=== PATIENT | female | born 1995 | race Caucasian/White ===

== ENCOUNTER → 2017-01-30 16:05 | Observation (INO) ==
[2017-01-30 15:18] LABS: Bilirubin,Urine Negative (Negative); Blood,Urine Negative (Negative); Color,Urine Yellow (Yellow); Glucose,Urine (UA) Normal (Normal); Ketones,Urine Negative (Negative); Leukocyte Esterase,Urine Negative (Negative); Nitrite,Urine Negative (Negative); Protein,Urine Negative (Neg-Trace); Specific Gravity,Urine 1.024 (1.010-1.025); Urobilinogen,Urine Normal (Normal)
[2017-01-30 15:21] LABS: Bacteria,Urine Few per hpf (None-Few); Hyaline Casts,Urine None Seen per lpf (None-Few); RBC,Urine 0-3 per hpf (0-3); Squamous Epithelial Cell,Urine Many per lpf (None-Few)
[2017-01-30 15:23] LABS: Clarity,Urine Cloudy (Clear)
--- NOTE | 2017-01-30 15:57 | Discharge Summary ---
Date of Encounter: 01/30/17 Time of Encounter: 15:57 - Discharge Diagnosis (1) Uterine contractions during Priority: Primary Status: Acute Comments: Patient arrives to labor and delivery with c/o low uterine contractions for the past 12 hours. She denies intercourse in the past 48 hours She states she does not drink a lot of water. She denies heavy activity or feeling thirsty She states positive movement. She denies LOF, vaginal bleeding, and vaginal discharge. Contractions not present on monitor, nor are they palpable. No tenderness suprapubically with palpation. and TOCO monitoring - WNL Urinalysis - NSF SSE - Visually closed cervix Discharge home with labor precautions Follow up in office with Dr Rowell as previously scheduled or prn if needed POC per consult with Dr Goetz (2) 21 weeks gestation of Priority: Primary Status: Acute Comments: Follow up in office with routine care or as needed - Discharge Medications Home Medications: Docusate [Colace] 100 mg PO BID #60 capsule 09/07/15 [Rx] Ferrous Sulfate 325 mg PO DAILY #30 tablet 09/07/15 [Rx] Ibuprofen [Motrin] 600 mg PO Q6H PRN #60 tablet 09/07/15 [Rx] Promethazine [Phenergan] 25 mg PO Q6HR #20 tablet 11/08/16 [Rx] Allergies/Adverse Reactions: Allergies No Known Allergies Allergy (Verified 07/19/16 08:48) Data Procedures and tests throughout hospitalization: Laboratory Tests 01/30/17 14:50 Urine Color Yellow Urine Clarity Cloudy A Urine pH 7.0 Ur Specific [place] 1.024 Urine Protein Negative Urine Glucose (UA) Normal Urine Ketones Negative Urine Blood Negative Urine Nitrite Negative Urine Bilirubin Negative Urine Urobilinogen Normal Ur Leukocyte Esterase Negative Urine Microscopic RBC 0-3 Urine Microscopic WBC 3-5 H Ur Squamous Epith Cells Many H Urine Bacteria Few Hyaline Casts None Seen Ur Culture Indicated? NO Labs on day of discharge: Labs from last 24 hours 01/30/17 14:50 Urine Color Yellow Urine Clarity Cloudy A Urine pH 7.0 Ur Specific [place] 1.024 Urine Protein Negative Urine Glucose (UA) Normal Urine Ketones Negative Urine Blood Negative Urine Nitrite Negative Urine Bilirubin Negative Urine Urobilinogen Normal Ur Leukocyte Esterase Negative Urine Microscopic RBC 0-3 Urine Microscopic WBC 3-5 H Ur Squamous Epith Cells Many H Urine Bacteria Few Hyaline Casts None Seen Ur Culture Indicated? NO Date of admission: 01/30/17 14:26 Primary care physician: Nichole Tadeo MD Discharging clinician: Blanca Man Anticipated date of discharge: 01/30/17 - Patient Status Disposition: Home, Self-Care Condition: Good Functional capacity at discharge: independent ambulation Overall status at discharge: patient is back to baseline - Discharge Instructions Follow Up With: Nichole Tadeo MD [Primary Care Provider] - Ruben Rowell DO [Partnered Physician] - - Diet and Activity Activity: resume usual activities as tolerated Diet: regular diet Hospital Course GUIDANCE SECRETARY Time Attestation: Total time spent providing and/or coordinating discharge services: Time Spent: Less than 30 minutes Exam - Constitutional General appearance IM: cooperative, A&O X 3, pleasant - Respiratory Respiratory exam: Present: CTAB - Cardiovascular Cardiovascular exam IM: Present: RRR, +S1, +S2 - GI/Abdominal GI/Abdominal exam IM: normal bowel sounds, soft - Rectal Rectal exam: deferred - Additional comments: Gravid size appropriate for gestational age Uterus palpates soft Baseline 150 with moderate variability, appropriate for gestational age. SSE - visually closed cervix - Extremities Exam Extremities exam IM: Present: normal capillary refill, normal inspection, radial pulses palpable and symetrical - Neurological Exam Neurological exam: alert, oriented X3, reflexes normal - VTE Reasons for not Prescribing Prophylaxis: Treatment not Indicated - Low risk for VTE
== END | disposition home or self-care (01) ==
LOC: 1NENULAB
PROVIDERS: ADMIT Obstetrics & Gynecology; ATTEND Obstetrics & Gynecology

== ENCOUNTER 2017-06-01 07:54 | Inpatient (IN) ==
[2017-06-01] MEDS ORDERED: Metoclopramide 10 MG/2 ML VIAL IVP PRN (08:58)
[2017-06-01] MEDS ORDERED: miSOPROStol 25 MCG TABLET VG PRN (08:58)
[2017-06-01] MEDS ORDERED: Ondansetron 4 MG/2 ML VIAL IVP PRN (08:58)
[2017-06-01] MEDS ORDERED: Famotidine 20 MG/2 ML VIAL IVP PRN (08:58)
[2017-06-01] MEDS ORDERED: *HR* Nalbuphine 20 MG/ML AMPUL IVP PRN (09:00)
[2017-06-01] MEDS ORDERED: FLUARIX QUAD 2017-18 36MOS UP/PF 0.5 ML SYRINGE IM ONE (09:02)
[2017-06-01 09:07] LABS: Basophils # 0.1 K/mcL (0.0-0.2); Basophils % 0.4 %; Eosinophils # 0.1 K/mcL (0.0-0.6); Hematocrit 31.7 % (35.3-44.9); Hemoglobin 10.5 g/dL (11.5-15.4); Immature Granulocytes % 1.4 % (0-4); Lymphocytes # 2.5 K/mcL (0.6-4.6); Lymphocytes % 19.6 %; Mean Corpuscular HGB Conc 33.1 g/dL (31.6-35.5); Mean Corpuscular Hemoglobin 27.6 pg (28.0-33.3); Mean Corpuscular Volume 83.2 fL (83.0-100.0); Mean Platelet Volume 9.7 fL (9.4-12.4); Monocytes # 0.9 K/mcL (0.0-1.3); Monocytes % 6.8 %; Neutrophils # 8.9 K/mcL (1.6-8.9); Platelet Count 291 K/mcL (140-400); Red Blood Count 3.81 M/mcL (3.82-4.97); Red Cell Distribution Width 15.2 % (11.5-14.5); Segmented Neutrophils % 70.8 %
[2017-06-01] MEDS ORDERED: Penicillin G Potassium 5,000,000 UNIT in D5% in Water (Mini-Bag+) 100 ML IVPB ONE (09:13)
[2017-06-01] MEDS ORDERED: miSOPROStol 25 MCG TABLET PO PRN (09:30)
[2017-06-01] MEDS: Ringers Solution, Lactated 1,000 ML IVC SCH ×2 (09:31→17:32)
--- NOTE | 2017-06-01 09:34 | OB/GYN History & Physical ---
Date of Encounter: 06/01/17 Time of Encounter: 09:30 Assessment and Plan (1) 39 weeks gestation of Current visit: No Status: Acute (2) Elective induction of labor planned Current visit: No Status: Acute We will induce the patient with a Escalante catheter, and by mouth Cytotec, and anticipate vaginal delivery (3) and not yet delivered in third trimester Current visit: No Status: Acute (4) Positive GBS test Current visit: Yes Status: Acute We will start antibiotics penicillin 5 million units loading dose and 2.5 million units every 4 hours until delivery History of Present Illness HPI: Ms. Serra is a 21 year old female 2 para 1 at 39-1/7 weeks who presented for induction of labor secondary to in with favorable cervix. Patient is a small individual at only 4 foot 11 and has a average sized baby but for her results of the large. I am concerned the baby will get too big to be let her go too far and not be able to be delivered through is recommended once she was in the 39 week range with a favorable cervix which is bringing in and induce. Patient's course otherwise has been unremarkable. Patient is varicella status is equivocal she is GBS positive, rubella positive, Rh+. Past Med Surg Social Fam HX - Past Medical History Source: patient, old records reviewed Medical history: no medical history Psychiatric history: anxiety - Past Surgical History Surgical History: no surgical history - Social History Smoking Status: Never smoker Smokeless Tobacco Status: No Alcohol use: none Drug use: none Occupational status: employed Current living situation: Home - Independent Activity Level: Independent ambulation Recent Out of Country Travel Within the Last 8 Weeks: No Exposure or Possible Exposure to Illness During Travel: No - Family History Mother Adopted: [place]: Anaya Family Member Ethnicity: Non- Living Status: Still Living Hx Family Cardiac Disorders: No Hx Family Respiratory Disorders: No Hx Family Cancer: No Hx Family GI Disorders: No Hx Family Genitourinary Disorders: No Hx Family Endocrine Disorder: No Hx Family Musculoskeletal Disorders: No Hx Family Neuromuscular Disorders: No Hx Family Neurologic Disorders: No Hx Family HEENT Disorders: No Hx Family Autoimmune Disorders: No Hx Family Reproductive Disorders: No Hx Family Psychosocial Disorders: No Hx Family Medical Disorders: No - Additional Family History Additional family history: Family history is noncontributory Obstetrical History - Pregnancies : 2 Para: 1 Livin Medications and Allergies Formula Tablet 1 tab PO DAILY 04/26/17 [History] Unisom 1 tab PO DAILY 04/26/17 [History] Phenergan 06/01/17 [History] 3 Allergy/AdvReac Type Severity Reaction Status Date / Time No Known Allergies Allergy Verified 07/19/16 08:48 Review of System OB All systems PM: reviewed and no additional remarkable complaints except as stated Exam - Constitutional Constitutional: well developed, well nourished, no acute distress, average body habitus - HEENT HEENT: EOMI, PERRL, Mucus Membranes Moist - Neck Neck exam: full ROM - Lungs Respiratory exam: CTAB - Cardiovascular Cardiovascular exam: RRR - Abdomen Abdomen: Present: bowel sounds normal, gravid - Vagina Vagina: Present: normal moisture - Cervix Cervix: Present: lesion Dilation: 2 Effacement: 50 Station: -3 - Uterus Uterus exam: Present: normal size - Comments Comments: heart tones in the 140s reactive contractions every 2-4 minutes irregular. Escalante catheter placed 30 mL balloon inflated without difficulty Results Result Diagrams: 06/01/17 08:50 Abnormal lab results WBC 12.6 K/mcL (4.3-11.1) H 06/01/17 08:50 RBC 3.81 M/mcL (3.82-4.97) L 06/01/17 08:50 Hgb 10.5 g/dL (11.5-15.4) L 06/01/17 08:50 Hct 31.7 % (35.3-44.9) L 06/01/17 08:50 MCH 27.6 pg (28.0-33.3) L 06/01/17 08:50 RDW 15.2 % (11.5-14.5) H 06/01/17 08:50 All other labs normal. - VTE Reasons for not Prescribing Prophylaxis: Treatment not Indicated - Low risk for VTE
--- NOTE | 2017-06-01 10:48 | Anesthesia Evaluation PreOp ---
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: Denies Any Significant HX Other Medical History: Denies Any Significant HX Anesthesia History: No Prior Anesthetic Complications, Past Anesthesia Alcohol Use: none Drug use: none Medications and Allergies Formula Tablet 1 tab PO DAILY 04/26/17 [History] Unisom 1 tab PO DAILY 04/26/17 [History] Phenergan 06/01/17 [History] 3 Allergy/AdvReac Type Severity Reaction Status Date / Time No Known Allergies Allergy Verified 07/19/16 08:48 Anesthesia Results - Labs 06/01/17 08:50 Anesthesia Exam - HEENT Pupil (Motor): Pupils equal Mallampati: II Teeth: Normal Oral Opening: Greater than 3 - OFFSET PROOF PRESS OPERATOR LOC: Oriented OFFSET PROOF PRESS OPERATOR Motor: Normal RUE, Normal LUE, Normal RLE, Normal LLE, Normal Face OFFSET PROOF PRESS OPERATOR Sensory: Normal: RUE, LUE, RLE, LLE, Face - Cardiac Rhythm: Regular Murmur: None - Pulmonary Breath Sounds: bilateral Clear Respiratory Effort: Symmetrical Anesthesia Assess/Plan ASA Score: 2 Modified Yariel Scale for Level of Consciousness: Cooperative, oriented, and tranquil Anesthetic Plan: General, Regional Monitoring Plan: Standard Monitors Recovery Plan: PACU
[2017-06-01] MEDS: Penicillin G Potassium 2,500,000 UNIT in D5% in Water 100 ML IVPB SCH ×2 (13:38→17:35)
[2017-06-01 14:03] LABS: Amphetamine Screen,Urine Negative ng/mL (Cutoff=1000); Barbiturate Screen,Urine Negative ng/mL (Cutoff=200); Benzodiazepines Screen,Urine Negative ng/mL (Cutoff=200); Cannabinoid Screen,Urine Negative ng/mL (Cutoff = 50); Cocaine Screen,Urine Negative ng/mL (Cutoff= 300); Opiate Screen,Urine Negative ng/mL (Cutoff=300); Phencyclidine Screen,Urine Negative ng/mL (Cutoff=25)
[2017-06-01] MEDS ORDERED: Epidural Premix (fent/bupiv) 110 ML EP ONE ×2 (14:19→21:07)
--- NOTE | 2017-06-01 15:41 | Anesthesia Procedures ---
Date of Encounter: 06/01/17 Time of Encounter: 15:17 Procedures: Anesthesia - Epidural/Spinal Patient ID/Chart reviewed: Yes Patient examined: Yes OB Eval: Gestational age: term OB Eval: : 2 OB Eval: Hx Para: 1 OB Eval: Dilated at (cm): 4 OB Eval: Contractions: Non-stressed pattern Consent Obtained: Yes Supplemental Oxygen: None/Room Air Site Prep: Aseptic Technique, Sterile prep and drape, 0.5% Chlorhexidine/Alcohol Patient position: upright Local Anesthetic: Lidocaine 1% Amount of Local Anesthetic used: 2 Touhy Needle Gauge: 18 Touhy Needle Depth (cm): 7 Catheter Depth at Skin (cm): 11 Test Dose (1.5% Lido + Epi): Volume given (mls): 3 Test Dose Result: Negative Loading Dose: Other: 10ml from solution Loading Dose Administered: Thru Catheter Infusion Med: 0.125% Bupivacaine w/ 2 mcg/ml Fentanyl Infusion Rate (mls/hr): [address]: Tegaderm, Tape Interspace Used: L3-L4 Loss of Resistance (CY): Yes (saline) Blood: No CSF: No Paresthesia: No Procedure: vss though out, FHR stable per RN's
--- NOTE | 2017-06-01 15:51 | OB Labor Progress Note ---
Date of Encounter: 06/01/17 Time of Encounter: 15:50 Labor Progress Note - Subjective Subjective: Patient comfortable after epidural not feeling any contractions at this time - Cervix Cervix: 5/80/-2 AROM large amt clear flluid - Heart Tones Heart Tones: heart tones 140s reactive - [place]: Contractions every 2 minutes - Plan Plan: Continue current care and anticipate vaginal delivery
--- NOTE | 2017-06-01 18:08 | OB Labor Progress Note ---
Date of Encounter: 06/01/17 Time of Encounter: 18:00 Labor Progress Note - Subjective Subjective: patient not feeling contractions - Cervix Cervix: 6/80/-2 - Heart Tones Heart Tones: FHT 140's reactive - [place]: IUPC placed contractions irregular q 3-5 min - Plan Plan: will augment with pitocin
[2017-06-01] MEDS ORDERED: Mag Hydrox/Al Hydrox/Simeth 30 ML UDC PO PRN (18:11)
[2017-06-01] MEDS ORDERED: Oxytocin 20 units/ LR 1000 mL 20 UNIT/1,000 ML BAG IVC SCH ×2 (18:15→23:53)
--- NOTE | 2017-06-01 20:03 | OB Labor Progress Note ---
Date of Encounter: 06/01/17 Time of Encounter: 19:50 Labor Progress Note - Subjective Subjective: patient still very comfortable not feeling contractions - Cervix Cervix: /-2 feels like baby might be OP - Heart Tones Heart Tones: FHT's 140 reactive - [place]: contractions every 2 min - Plan Plan: change position and anticipate
--- NOTE | 2017-06-01 21:57 | OB/GYN Procedure Note ---
Delivery - Delivery Date: 06/01/17 Provider: Ruben Rowell Intrapartum events: none Delivery induction: thacker, misoprostol Delivery augmentation: rupture of membranes, pitocin Delivery monitor: external FHT, external uterine, internal uterine Anesthesia: epidural Estimated Blood Loss: 100 - Infant (s) Infant A Infant Delivery Date: 06/01/17 Delivery Time: 21:38 Presentation: vertex Position: KRISTY Route of delivery: Gender: Female Viability: Viable Pounds: 7 Ounces: 9 Weight Gram: 3.44 kg at 1 minute: 8 at 5 mins: 9 Shoulder Dystocia: not encountered Specimens collected: cord blood Placenta: spontaneous Cord: 3 umbilical vessels - Repair Episiotomy: none Laceration Description: None - Complications Delivery complications: none Delivery comments: Patient is a 21-year-old 2 para 1 at 39-1/7 weeks who presented to labor and delivery for induction of labor secondary to term with favorable cervix. Patient did receive the Thacker catheter and Cytotec by mouth catheter fell out when she was 4-5 cm. She did receive an epidural and she was artificially ruptured approximate 5 cm with clear fluid. Patient progressed hopefully patient became complete but the head was at a -2 station and felt the baby was in an OP presentation. Did position changes which allowed the baby to turn and patient descended quickly at this point she pushed for 4. Time delivering a viable female infant in left occiput anterior presentation at 2138. There was no nuchal cord, no meconium, infant was bulb suctioned on the abdomen. Apgars 8 at 1 minute, 9 at 5 minutes, infant weight was 7 lbs. 9 oz. 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 Perineum cervix and vagina was visualized intact patient tolerated the delivery well. She will be observed 2 hours before being taken the floor. - Disposition Mom disposition: stable in LDR [place] disposition: stable in LDR
[2017-06-01] MEDS ORDERED: Acetaminophen 325 MG TABLET PO PRN (23:53)
[2017-06-01] MEDS ORDERED: Measles/Mumps/Rubella Vacc 0.5 ML VIAL SQ PRN (23:53)
[2017-06-02 07:18] LABS: Basophils % 0.2 %; Eosinophils # 0.1 K/mcL (0.0-0.6); Eosinophils % 0.3 %; Hematocrit 28.3 % (35.3-44.9); Hemoglobin 9.4 g/dL (11.5-15.4); Immature Granulocytes % 0.8 % (0-4); Lymphocytes # 2.4 K/mcL (0.6-4.6); Lymphocytes % 13.7 %; Mean Corpuscular HGB Conc 33.2 g/dL (31.6-35.5); Mean Corpuscular Hemoglobin 27.7 pg (28.0-33.3); Mean Corpuscular Volume 83.5 fL (83.0-100.0); Mean Platelet Volume 9.5 fL (9.4-12.4); Monocytes # 1.2 K/mcL (0.0-1.3); Monocytes % 7.1 %; Neutrophils # 13.4 K/mcL (1.6-8.9); Nucleated Red Blood Cells 0.1 /100 WBC (0); Platelet Count 273 K/mcL (140-400); Red Blood Count 3.39 M/mcL (3.82-4.97); Red Cell Distribution Width 15.4 % (11.5-14.5); Segmented Neutrophils % 77.9 %
[2017-06-02] MEDS: Prenatal Vit/FA 1 EACH TABLET PO SCH (09:44)
[2017-06-02] MEDS: Ibuprofen 600 MG TABLET PO PRN ×3 (09:45→21:33)
--- NOTE | 2017-06-02 12:22 | OB/GYN Progress Note ---
Date of Encounter: 06/02/17 Time of Encounter: 12:21 - Assessment and Plan (1) Status post vaginal delivery Current Visit: Yes Status: Acute continue post op management and pain control. Anticipate discharge tomorrow morning. (2) 39 weeks gestation of Current Visit: Yes Status: Resolved (3) Elective induction of labor planned Current Visit: Yes Status: Resolved (4) Positive GBS test Current Visit: Yes Status: Acute Subjective - Subjective Principal diagnosis: s/p vaginal delivery Interval history: Patient doing well overnight, some cramping noted. Anticipate discharge tomorrow. Patient reports: appetite normal, voiding normally, pain well controlled, ambulating normally [place]: doing well, nursing well Objective - Latest Vital Signs Latest vital signs: Vital Signs Temp Pulse Resp BP Pulse Ox 06/02/17 07:50 98.4 F 84 16 112/63 96 06/02/17 02:05 99.1 F 99 16 115/69 95 06/02/17 01:05 98.9 F 88 16 109/64 96 06/02/17 00:05 98.9 F 94 16 126/75 96 Intake and Output 06/01/17 06/02/17 06/02/17 23:59 07:59 15:59 Intake Total 1000 / 1000 700 / 700 Output Total 100 / 100 1350 / 1350 Balance 900 / 900 -650 / -650 Intake: IV Fluids 1000 / 1000 Lactated Ringers 1,000 ML @ 125 1000 / 1000 mls/hr IVC .Q8H [facility] Rx#: [id number] Oral 400 / 400 Other 300 / 300 Output: Urine 1350 / 1350 Estimated Blood Loss 100 / 100 Other: Weight 81.2 kg Patient Weight 06/02/17 23:59 Weight 81.2 kg - Exam Lungs: bilateral: normal Chest: Normal S1, Normal S2 Extremities: Present: normal Abdomen: Present: normal appearance, soft Uterus: Present: normal, firm Uterus Position: 1 Finger Below Umbilicus - Labs Labs: Laboratory Results - last 24 hr 06/01/17 06/02/17 13:45 06:44 WBC 17.2 H RBC 3.39 L Hgb 9.4 L Hct 28.3 L MCV 83.5 MCH 27.7 L MCHC 33.2 RDW 15.4 H Plt Count 273 MPV 9.5 Immature Gran % 0.8 Seg Neutrophils % 77.9 Lymphocytes % 13.7 Monocytes % 7.1 Eosinophils % 0.3 Basophils % 0.2 Neutrophils # 13.4 H Lymphocytes # 2.4 Monocytes # 1.2 Eosinophils # 0.1 Basophils # 0.0 Nucleated RBCs/100 WBC 0.1 H Urine Opiates Screen Negative Ur Barbiturates Screen Negative Ur Phencyclidine Scrn Negative Ur Amphetamines Screen Negative U Benzodiazepines Scrn Negative Urine Cocaine Screen Negative U Marijuana (THC) Screen Negative - Attending Attestation I examined this patient and my medical decision-making was reviewed with the Resident Physician. I agree with the documented findings, disposition and treatment plan as described except to the extent set forth below.
[2017-06-03 08:04] VITALS: BP 110/71
[2017-06-03] MEDS: Prenatal Vit/FA 1 EACH TABLET PO SCH (08:56)
--- NOTE | 2017-06-03 10:08 | Discharge Summary ---
Date of Encounter: 06/03/17 Time of Encounter: 10:10 - Discharge Diagnosis (1) Status post vaginal delivery Priority: Primary Status: Acute Comments: Meeting all milestones, pain well managed on po pain medication. desires discharge. (2) anemia Priority: Primary Status: Acute Comments: Hemoglobin has decreased from 10.5 to 9.4 since yesterday. -Patient will continue iron supplements. - Discharge Medications Prescriptions: Ibuprofen [Motrin] 600 mg PO Q6HR PRN #60 tablet PRN Reason: Cramping Docusate [Colace] 100 mg PO BID #30 capsule Ferrous Sulfate 325 mg PO DAILY #30 tablet Home Medications: Formula Tablet 1 tab PO DAILY 04/26/17 [History] Unisom 1 tab PO DAILY 04/26/17 [History] Phenergan 06/01/17 [History] Docusate [Colace] 100 mg PO BID #30 capsule 06/03/17 [Rx] Ferrous Sulfate 325 mg PO DAILY #30 tablet 06/03/17 [Rx] Ibuprofen [Motrin] 600 mg PO Q6HR PRN #60 tablet 06/03/17 [Rx] Allergies/Adverse Reactions: 3 Allergy/AdvReac Type Severity Reaction Status Date / Time No Known Allergies Allergy Verified 07/19/16 08:48 Data Procedures and tests throughout hospitalization: Laboratory Tests 06/01/17 06/01/17 06/02/17 08:50 13:45 06:44 WBC 12.6 H 17.2 H RBC 3.81 L 3.39 L Hgb 10.5 L 9.4 L Hct 31.7 L 28.3 L MCV 83.2 83.5 MCH 27.6 L 27.7 L MCHC 33.1 33.2 RDW 15.2 H 15.4 H Plt Count 291 273 MPV 9.7 9.5 Immature Gran % 1.4 0.8 Seg Neutrophils % 70.8 77.9 Lymphocytes % 19.6 13.7 Monocytes % 6.8 7.1 Eosinophils % 1.0 0.3 Basophils % 0.4 0.2 Neutrophils # 8.9 13.4 H Lymphocytes # 2.5 2.4 Monocytes # 0.9 1.2 Eosinophils # 0.1 0.1 Basophils # 0.1 0.0 Nucleated RBCs/100 WBC 0.1 H Urine Opiates Screen Negative Ur Barbiturates Screen Negative Ur Phencyclidine Scrn Negative Ur Amphetamines Screen Negative U Benzodiazepines Scrn Negative Urine Cocaine Screen Negative U Marijuana (THC) Screen Negative Date of admission: 06/01/17 07:54 Primary care physician: Nichole Tadeo MD Consults: 06/01/17 23:53 Consult to Ultrasound Tester [CONS] Routine Comment: Vaginal delivery, consult needed Discharging clinician: Domingo García Anticipated date of discharge: 06/03/17 - Patient Status Disposition: Home, Self-Care Condition: Good Functional capacity at discharge: independent ambulation Overall status at discharge: patient is progressing back to baseline - Discharge Instructions Instructions: Anemia (GEN) Follow Up With: Nichole Tadeo MD [Primary Care Provider] - - Diet and Activity Activity: resume usual activities as tolerated Diet: low fat, low cholesterol, regular diet Hospital Course Reason for admission: induction of labor Delivery: Episiotomy: none Laceration: none Other procedures: none complications: none Discharge diagnosis: IUP at term delivered baby: female Hospital course: Patient is a 21-year-old 2 para 1 at 39-1/7 weeks who presented to labor and delivery for induction of labor secondary to term with favorable cervix. Patient did receive the Escalante catheter and Cytotec by mouth catheter fell out when she was 4-5 cm. She did receive an epidural and she was artificially ruptured approximate 5 cm with clear fluid. Patient progressed hopefully patient became complete but the head was at a -2 station and felt the baby was in an OP presentation. Did position changes which allowed the baby to turn and patient descended quickly at this point she pushed for 4. Time delivering a viable female in left occiput anterior presentation at 2138. There was no nuchal cord, no meconium, was bulb suctioned on the abdomen. Apgars 8 at 1 minute, 9 at 5 minutes, weight was 7 lbs. 9 oz. Placenta was then delivered spontaneously with three-vessel cord. When seen today, patient says that she still experiences abdominal discomfort and says it can go up to a 7/10 in pain scale, but is usually well controlled with her current pain meds. She admits to vaginal bleeding, but says it has improved since the delivery and says she only has minor spotting now. She denies any dysuria, fever, chills, nausea, vomiting, chest pain, shortness of breath, headaches, vision changes, light-headedness, or syncope. She says she has been able to breastfeed the baby well. She reports she is in good mood. Patient's hemoglobin is currently at 9.4. She will be discharged with iron supplements for which she should continue to take for 30 days. Patient has a follow-up appointment with Dr. Rowell on 07/03/2017. Time Attestation: Total time spent providing and/or coordinating discharge services: Time Spent: Less than 30 minutes Exam - Constitutional Vitals: Temp Pulse Resp BP Pulse Ox 97.8 F 78 12 110/71 95 06/03/17 08:01 06/03/17 08:01 06/03/17 08:01 06/03/17 08:01 06/03/17 08:01 General appearance IM: A&O X 3 - Respiratory Respiratory exam: Present: CTAB. Absent: respiratory distress, rhonchi, wheezes - Cardiovascular Cardiovascular exam IM: Present: RRR, +S1, +S2 - GI/Abdominal GI/Abdominal exam IM: normal bowel sounds, soft - Extremities Exam Extremities exam IM: Present: normal capillary refill, normal inspection, radial pulses palpable and symmetrical. Absent: pedal edema, tenderness - Neurological Exam Neurological exam: CN II-XII intact, reflexes normal, no focal deficits, strengths equal and symetr throughout
== END 2017-06-03 12:04 | disposition home or self-care (01) | DRG 560 ==
LOC: 1NENULAB 07:54 → 1NENUOBS 23:51
PROVIDERS: ADMIT Obstetrics & Gynecology; ATTEND Obstetrics & Gynecology

== ENCOUNTER → 2021-10-16 15:44 | Observation (INO) ==
[2021-10-16 14:09] LABS: Basophils # 0.1 K/mcL (0.0-0.2); Basophils % 0.6 %; Eosinophils # 0.1 K/mcL (0.0-0.6); Hemoglobin 11.2 g/dL (11.5-15.4); Immature Granulocytes % 1.4 % (0-4); Lymphocytes # 2.5 K/mcL (0.6-4.6); Lymphocytes % 20.9 %; Mean Corpuscular HGB Conc 33.9 g/dL (31.6-35.5); Mean Corpuscular Hemoglobin 31.5 pg (28.0-33.3); Mean Corpuscular Volume 92.7 fL (83.0-100.0); Monocytes # 0.6 K/mcL (0.0-1.3); Monocytes % 4.8 %; Neutrophils # 8.4 K/mcL (1.6-8.9); Platelet Count 224 K/mcL (140-400); Red Blood Count 3.56 M/mcL (3.82-4.97); Red Cell Distribution Width 12.1 % (11.5-14.5); Segmented Neutrophils % 71.3 %; White Blood Count 11.8 K/mcL (4.3-11.1)
[2021-10-16 14:43] LABS: Potassium 3.7 mEq/L (3.5-5.1)
[2021-10-16 15:01] LABS: Bacteria,Urine Few per hpf (None-Few); Bilirubin,Urine Negative (Negative); Blood,Urine Negative (Negative); Clarity,Urine Clear (Clear); Color,Urine Yellow (Yellow); Glucose,Urine (UA) Normal (Normal); Ketones,Urine Negative (Negative); Leukocyte Esterase,Urine Small (Negative); Mucus,Urine Few per lpf (None-Few); Nitrite,Urine Negative (Negative); Protein,Urine 30 mg/dL (Neg-Trace); Specific Gravity,Urine > 1.030 (1.010-1.025); Squamous Epithelial Cell,Urine Moderate per hpf (None-Few); Urobilinogen,Urine Normal (Normal)
[~2021-10-16 15:44] MED LIST: Ringers Solution, Lactated 1,000 ML IVC SCH
== END | disposition home or self-care (01) ==
LOC: 1NENULAB
PROVIDERS: ADMIT Student in an Organized Health Care Education/Training Program; ATTEND Student in an Organized Health Care Education/Training Program

== ENCOUNTER → 2021-11-21 21:25 | Observation (INO) | END | disposition home or self-care (01) | LOC: 1NENULAB | PROVIDERS: ADMIT Student in an Organized Health Care Education/Training Program; ATTEND Student in an Organized Health Care Education/Training Program ==

== ENCOUNTER 2021-11-29 07:47 | Inpatient (IN) ==
[2021-11-29] MEDS ORDERED: Metoclopramide 10 MG/2 ML VIAL IVP PRN (08:05)
[2021-11-29] MEDS ORDERED: Famotidine 20 MG/2 ML VIAL IVP PRN (08:05)
[2021-11-29] MEDS ORDERED: *HR* Nalbuphine 10 MG/ML AMPUL IV PRN (08:05)
[2021-11-29] MEDS ORDERED: Naloxone 0.4 MG/ML INJ IVP PRN (08:05)
[2021-11-29] MEDS ORDERED: Lidocaine -MPF 1% 2 ML VIAL INFILT ONE (08:08)
[2021-11-29] MEDS ORDERED: Azithromycin 500 MG in 0.9 % Sodium Chloride 250 ML IVPB ONE (08:08)
[2021-11-29] MEDS ORDERED: Ondansetron 4 MG/2 ML VIAL IVP PRN (08:08)
[2021-11-29] MEDS ORDERED: Penicillin G Potassium 5,000,000 UNIT in 0.9 % Sodium Chloride Mini Bag 100 ML IVPB ONE (08:11)
[2021-11-29] MEDS ORDERED: Oxytocin 30 UNIT/503 ML BAG IVC SCH ×2 (08:15→18:25)
[2021-11-29] MEDS: Ringers Solution, Lactated 1,000 ML IVC SCH ×2 (08:40→12:07)
[2021-11-29 08:45] LABS: Basophils # 0.1 K/mcL (0.0-0.2); Basophils % 0.5 %; Eosinophils # 0.2 K/mcL (0.0-0.6); Eosinophils % 1.5 %; Hematocrit 34.1 % (35.3-44.9); Hemoglobin 11.5 g/dL (11.5-15.4); Immature Granulocytes % 1.2 % (0-4); Lymphocytes # 2.2 K/mcL (0.6-4.6); Mean Corpuscular HGB Conc 33.7 g/dL (31.6-35.5); Mean Corpuscular Hemoglobin 30.4 pg (28.0-33.3); Mean Corpuscular Volume 90.2 fL (83.0-100.0); Mean Platelet Volume 9.6 fL (9.4-12.4); Monocytes # 0.6 K/mcL (0.0-1.3); Monocytes % 5.6 %; Platelet Count 226 K/mcL (140-400); Red Blood Count 3.78 M/mcL (3.82-4.97); Red Cell Distribution Width 12.3 % (11.5-14.5); Segmented Neutrophils % 69.2 %; White Blood Count 10.1 K/mcL (4.3-11.1)
[2021-11-29 08:53] LABS: Amphetamine Screen,Urine Negative ng/mL (Cutoff=1000); Barbiturate Screen,Urine Negative ng/mL (Cutoff=200); Benzodiazepines Screen,Urine Negative ng/mL (Cutoff=200); Cannabinoid Screen,Urine Negative ng/mL (Cutoff = 50); Cocaine Screen,Urine Negative ng/mL (Cutoff= 300); Opiate Screen,Urine Negative ng/mL (Cutoff=300); Phencyclidine Screen,Urine Negative ng/mL (Cutoff=25)
[2021-11-29 09:18] LABS: Influenza A PCR Negative (Negative); Influenza B PCR Negative (Negative); Resp. Syncytial Virus PCR Negative (Negative); SARS-CoV-2 by PCR (In House) Negative (Negative)
[2021-11-29] MEDS ORDERED: EPHEDrine 50 MG/ML VIAL IVP PRN (11:41)
[2021-11-29] MEDS ORDERED: Epidural Premix (fent/bupiv) 110 ML EP SCH (11:45)
[2021-11-29] MEDS ORDERED: Penicillin G Potassium 2,500,000 UNIT/105 ML MLS IVPB SCH (12:00)
[2021-11-29] MEDS ORDERED: Ondansetron ODT 4 MG TAB.RAPDIS SL PRN (18:25)
[2021-11-29] MEDS ORDERED: Rho Immune Globulin 1,500 UNIT SYRINGE IM PRN (18:25)
[2021-11-29] MEDS ORDERED: Lanolin 7 G OINT...G. TP PRN (18:25)
[2021-11-29] MEDS ORDERED: Benzocaine/Menthol 56 GM AEROSOL SPRAY TP PRN (18:25)
[2021-11-29] MEDS: Ibuprofen 600 MG TABLET PO SCH (19:55)
[2021-11-29] MEDS: Acetaminophen 325 MG TABLET PO SCH (19:55)
[2021-11-30] MEDS: Ibuprofen 600 MG TABLET PO SCH ×3 (02:52→14:15)
[2021-11-30] MEDS: Acetaminophen 325 MG TABLET PO SCH ×2 (02:53→14:15)
[2021-11-30 05:29] LABS: Basophils # 0.1 K/mcL (0.0-0.2); Basophils % 0.4 %; Eosinophils # 0.2 K/mcL (0.0-0.6); Eosinophils % 1.3 %; Hematocrit 29.2 % (35.3-44.9); Hemoglobin 10.2 g/dL (11.5-15.4); Immature Granulocytes % 0.6 % (0-4); Lymphocytes # 2.6 K/mcL (0.6-4.6); Lymphocytes % 21.3 %; Mean Corpuscular HGB Conc 34.9 g/dL (31.6-35.5); Mean Corpuscular Hemoglobin 31.6 pg (28.0-33.3); Mean Corpuscular Volume 90.4 fL (83.0-100.0); Monocytes # 0.9 K/mcL (0.0-1.3); Monocytes % 7.4 %; Neutrophils # 8.5 K/mcL (1.6-8.9); Platelet Count 205 K/mcL (140-400); Red Blood Count 3.23 M/mcL (3.82-4.97); Red Cell Distribution Width 12.3 % (11.5-14.5); White Blood Count 12.3 K/mcL (4.3-11.1)
[2021-11-30 07:12] VITALS: BP 92/51; PULSE 79; TEMP 98.2; O2SAT 97
[2021-11-30] MEDS ORDERED: Prenatal Vit/FA 1 EACH TABLET PO SCH (09:00)
== END 2021-11-30 16:34 | disposition home or self-care (01) | DRG 560 ==
LOC: 1NENULAB 07:47 → 1NENUOBS 18:24
PROVIDERS: ADMIT Obstetrics & Gynecology; ATTEND Obstetrics & Gynecology